=== PATIENT | female | born 2000 | race Caucasian/White ===

== ENCOUNTER 2022-07-21 18:07 | Emergency (ER) | payer MEDICAID, SELFPAY ==
--- NOTE | 2022-07-21 18:30 | CTR_ITS ---
PROCEDURE INFORMATION: Exam: CT Abdomen And Pelvis Without Contrast Exam date and time: 07/21/2022 7:55 PM Age: 21 years old Clinical indication: Abdominal pain; Flank; Right; Additional info: Question of kidney stone TECHNIQUE: Imaging protocol: Computed tomography of the abdomen and pelvis without contrast. Radiation optimization: All CT scans at this facility use at least one of these dose optimization techniques: automated exposure control; mA and/or kV adjustment per patient size (includes targeted exams where dose is matched to clinical indication); or iterative reconstruction. COMPARISON: No relevant prior studies available. RADIATION DOSE METRICS: Total DLP (mGy-cm): 350.58 FINDINGS: Liver: Normal. No mass. Gallbladder and bile ducts: Normal. No calcified stones. No ductal dilation. Pancreas: Normal. No ductal dilation. Spleen: One or more accessory splenules. Adrenal glands: Normal. No mass. Kidneys and ureters: Normal. No hydronephrosis. Stomach and bowel: Unremarkable. No obstruction. No mucosal thickening. Appendix: Normal appendix. Intraperitoneal space: Unremarkable. No free air. No significant fluid collection. Vasculature: Unremarkable. No abdominal aortic aneurysm. Lymph nodes: Unremarkable. No enlarged lymph nodes. Urinary bladder: Unremarkable as visualized. Reproductive: 3.4 cm right ovarian cyst just inferior to the appendix and anterior to the right psoas muscle. Bones/joints: Unremarkable. No acute fracture. Soft tissues: Unremarkable. CT/CT abdomen pelvis con [id number] IMPRESSION: 1. 3.4 cm right ovarian cyst just inferior to the appendix and anterior to the right psoas muscle. 2. Normal appendix.
[2022-07-21 19:47] LABS: Basophils % 0.4 %; Eosinophils # 0.1 10^3/uL (0.0-0.8); Eosinophils % 0.9 %; Hematocrit 33.4 % (37.0-47.0); Lymphocytes # 1.9 10^3/uL (0.8-4.8); Mean Corpuscular HGB Conc 29.9 g/dL (30.0-36.0); Mean Corpuscular Hemoglobin 21.7 pg (28.0-34.0); Mean Corpuscular Volume 72.5 fl (81-99); Mean Platelet Volume 9.7 fL (7.4-10.4); Monocytes # 0.6 10^3/uL (0.2-0.9); Monocytes % 8.4 %; Neutrophils # 4.37 10^3/uL (1.8-7.7); Nucleated Red Blood Cells % 0 %; Platelet Count 480 10^3/cmm (130-400); Red Blood Count 4.61 10^6/uL (4.1-5.3); Red Cell Distribution Width 16.6 % (12.1-15.1); White Blood Count 6.9 10^3/uL (4.0-10.0)
[2022-07-21 19:51] LABS: HCG Qualitative Urine. Negative (Negative)
[2022-07-21 20:00] VITALS: BP 136/92; PULSE 60; RESP 16; O2SAT 100
[2022-07-21 20:02] LABS: Add Urine Microscopic? YES; Bilirubin Urine Neg (Negative); Blood Urine 2+ (Negative); Glucose Urine UA Norm (Normal); Ketones Urine Negative (Negative); Leukocyte Esterase Urine Trace (Negative); Nitrate Urine Negative (Negative); Protein Urine Neg (Negative); Urine Appearance SL Hazy (CLEAR); Urine Color Yellow (Yellow); Urobilinogen Urine Neg (Negative); pH Urine 6 (5-7)
[2022-07-21 20:03] LABS: Add Urine Culture? No; Bacteria Urine TRACE /hpf; Mucus Urine TRACE /hpf; WBC Urine 0-4 /hpf (0-5)
[2022-07-21 20:16] VITALS: RESP 18
[2022-07-21] MEDS: morphine 4 mg/mL SDV 1 mL IVP ×2 (20:16→22:25)
[2022-07-21] MEDS: ondansetron 2 mg/ML SDV 2 mL 4 MG IVP ×2 (20:16→22:25)
[2022-07-21] MEDS: sodium chloride 0.9% 1,000 ML 999 ML IV (20:17)
[2022-07-21 20:23] LABS: Alanine Aminotransferase 14 U/L (0-33); Albumin Level 4.3 g/dL (3.5-5.2); Alkaline Phosphatase 58 U/L (35-105); Anion Gap 15.1 (5-19); Aspartate Amino Transferase 31 U/L (0-32); Blood Urea Nitrogen 9 mg/dL (6-20); Calcium 9.1 mg/dL (8.5-10.5); Carbon Dioxide 25 mmol/L (22-29); Chloride 98 mmol/L (98-107); Globulin 3.8 g/dL (1.3-4.6); Glomerular Filtration Rate 105.6 mL/min (90-130); Glucose 100 mg/dL (65-115); Osmolality Calculated 277 mOsm/kg (285-295); Potassium 4.1 mmol/L (3.5-5.1); Sodium 134 mmol/L (136-145); Total Bilirubin 0.7 mg/dL (0.15-1.2); Total Protein 8.1 g/dL (6.6-8.7)
--- NOTE | 2022-07-21 20:45 | W.ED.FEMALGU ---
HPI - Female Genitourinary General: Chief complaint: Urogenital-Female Stated complaint: right side pain, blood in urine Time Seen by Provider: 07/21/22 18:33 History of Present Illness: Healthy 21-year-old female here with right abdominal and right flank pain. She was seen at urgent care, told to come here due to blood in her urine and flank pain. She denies fever. She vomited 1 time. She notes that it is hard to straighten up due to the belly pain. MD elicited complaint: pelvic pain and flank pain Onset (ago): hour(s) Quality of pain: stabbing and aching Consistency: constant Vaginal discharge: none Vaginal bleeding: none Associated symptoms: Reports abdominal pain and nausea; Deny fevers/chills, headache(s), vaginal bleeding or vaginal discharge Review of Systems Const: Denies: fever(s), chills or body aches Eyes: Denies: change in vision Card: Denies: chest pain or palpitations Resp: Denies: dyspnea, productive cough, non-productive cough or wheezing GI: Reports: abdominal pain, nausea and vomiting; Denies: diarrhea : Denies: vaginal bleeding or vaginal discharge Skin/Breast: Denies: rash Neuro: Denies: headache(s) Physical Exam Const: COMMON NORMALS: no acute distress GENERAL APPEARANCE: cooperative; not ill appearing and not frail appearing HENMT: COMMON NORMALS: normocephalic, atraumatic and Normal external nose present HEAD & SCALP: normocephalic and atraumatic FACE & SINUS: normal facial exam and face symmetric NOSE: Normal external nose present Eye: COMMON NORMALS: Equal, round and reactive pupils present and EOMs intact bilaterally PUPIL: Yes Equal, round and reactive pupils present Neck/C-Spine: GENERAL: Yes trachea midline Chest: CHEST: Yes Symmetrical chest wall rise Resp: COMMON NORMALS: normal respiratory effort, No retractions, No use of accessory muscles and clear to auscultation bilaterally AUSCULTATION: clear to auscultation bilaterally Cardio: COMMON NORMALS: regular rate and regular rhythm RATE: regular rate RHYTHM: regular rhythm GI: COMMON NORMALS: Normal to inspection, nondistended, normoactive bowel sounds present PALPATION: Yes Tenderness to palpation present (GI) Details: RLQ : BLADDER/KIDNEY EXAM: Yes CVA tenderness on the right SPECULUM EXAM - VAGINA: No vaginal bleeding OB/EXTERNAL & SPECULUM: No vaginal bleeding Back/Pelvis: GENERAL BACK: Yes CVA tenderness Extremity: COMMON NORMALS: no pedal edema Neuro: MARIELLA COMA SCALE: document GCS findings Mariella coma scale eye opening: Spontaneous Mariella coma scale verbal response: Orientated Mariella coma scale motor response: Obey commands Mariella coma scale total score: 15 SENSORY EXAM: Yes extremities (intact) Psych: COMMON NORMALS: speech normal SPEECH: Yes normal speech Skin: COMMON NORMALS: no rashes or lesions noted GENERAL SKIN EXAM: no rashes or lesions noted Course Vital Signs: Vital signs: Vital Signs Pulse Rate 60 07/21/22 20:00 Respiratory Rate 18 07/21/22 20:16 Blood Pressure 136/92 07/21/22 20:00 Pulse Oximetry 100 07/21/22 20:00 MDM - Female Medical Decision Making Hemoglobin is 10. White blood cell count 6.9. BMP is not remarkable. Liver enzymes are nonremarkable. Urinalysis shows 5-10 red cells. Is otherwise unremarkable. CT of the abdomen pelvis shows an ovarian cyst lying into the appendix. There is no hydronephrosis. The appendix is normal. She will be allowed discharge. Lab Data : 07/21/22 19:30 07/21/22 19:30 Radiology Impressions Abdomen/Pelvis CT 07/21/22 18:30 IMPRESSION: 1. 3.4 cm right ovarian cyst just inferior to the appendix and anterior to the right psoas muscle. 2. Normal appendix. Laboratory Results WBC 6.9 10^3/uL (4.0-10.0) 07/21/22 19: RBC 4.61 10^6/uL (4.1-5.3) 07/21/22 19:30 Hgb 10.0 g/dL (11.5-15.3) L 07/21/22 19:30 Hct 33.4 % (37.0-47.0) L 07/21/22 19:30 MCV 72.5 fl (81-99) L 07/21/22 19:30 MCH 21.7 pg (28.0-34.0) L 07/21/22 19:30 MCHC 29.9 g/dL (30.0-36.0) L 07/21/22 19:30 RDW 16.6 % (12.1-15.1) H 07/21/22 19: Plt Count 480 10^3/cmm (130-400) H 07/21/22: MPV 9.7 fL (7.4-10.4) 07/21/22 19: Neut % (Auto) 63.0 % 07/21/22: Lymph % (Auto) 27.0 % 07/21/22: [place] % (Auto) 8.4 % 07/21/22: Eos % (Auto) 0.9 % 07/21/22 19: Baso % (Auto) 0.4 % 07/21/22: Neut # (Auto) 4.37 10^3/uL (1.8-7.7) 07/21/22: Lymph # (Auto) 1.9 10^3/uL (0.8-4.8) 07/21/22: Miner # (Auto) 0.6 10^3/uL (0.2-0.9) 07/21/22: Eos # (Auto) 0.1 10^3/uL (0.0-0.8) 07/21/22 19: Baso # (Auto) 0.0 10^3/uL (0.0-0.1) 07/21/22: Nucleated RBC % (auto) 0 % 07/21/22: Nucleated RBCs # 0.0 /100WBC 07/21/22 19: Sodium 134 mmol/L (136-145) L 07/21/22: Potassium 4.1 mmol/L (3.5-5.1) 07/21/22: Chloride 98 mmol/L (98-107) 07/21/22: Carbon Dioxide 25 mmol/L (22-29) 07/21/22: Anion Gap 15.1 (5-19) 07/21/22 19: BUN 9 mg/dL (6-20) 07/21/22 19: Creatinine 0.7 mg/dL (0.5-0.9) 07/21/22 19: GFR Calculation 105.6 mL/min (90-130) 07/21/22: Glucose 100 mg/dL (65-115) 07/21/22: Calculated Osmolality 277 mOsm/kg (285-295) L 07/21/22 19: Calcium 9.1 mg/dL (8.5-10.5) 07/21/22 19: Total Bilirubin 0.7 mg/dL (0.15-1.2) 07/21/22 19: AST 31 U/L (0-32) 07/21/22 19: ALT 14 U/L (0-33) 07/21/22 19: Alkaline Phosphatase 58 U/L (35-105) 07/21/22 19: Total Protein 8.1 g/dL (6.6-8.7) 07/21/22 19: Albumin 4.3 g/dL (3.5-5.2) 07/21/22 19: Globulin 3.8 g/dL (1.3-4.6) 07/21/22 19:30 HCG, Qual Negative (Negative) 07/21/22 19: Urine Color Yellow (Yellow) 07/21/22 19: Urine Appearance Sl hazy (CLEAR) A 07/21/22 19: Urine pH 6 (5-7) 07/21/22 19:30 Ur Specific [place] 1.020 (1.005-1.030) 07/21/22: Urine Protein Neg (Negative) 07/21/22 19: Urine Glucose (UA) Norm (Normal) 07/21/22 19:30 Urine Ketones Negative (Negative) 07/21/22 19: Urine Blood 2+ (Negative) H 07/21/22: Urine Nitrate Negative (Negative) 07/21/22 19: Urine Bilirubin Neg (Negative) 07/21/22 19: Urine Urobilinogen Neg mg/dL (Negative) 07/21/22 19:30 Ur Leukocyte Esterase Trace (Negative) H 07/21/22 19:30 Urine RBC 5-10 /hpf (0-2) H 07/21/22 19:30 Urine WBC 0-4 /hpf (0-5) H 07/21/22 19:30 Ur Squamous Epith Cells 5-10 /hpf (0-5) H 07/21/22 19:30 Ur Transition Epith Cell 5-10 /hpf 07/21/22 19:30 Amorphous Sediment Not Reportable 07/21/22 19:30 Urine Bacteria Trace /hpf (NONE) 07/21/22 19:30 Urine Mucus Trace /hpf 07/21/22 19:30 Discharge Plan Discharge Patient Disposition: Home Clinical Impression: Ovarian cyst, Acute right lower quadrant pain Condition: Stable Prescriptions: New ketorolac 10 mg tablet 10 mg PO TID PRN (Reason: pain) Qty: 10 0RF ondansetron 4 mg film 4 mg PO DAILY PRN (Reason: nausea and vomiting) Qty: 10 0RF Discharge Orders: Discharge ED (Routine); Ordered 07/21/22 Ordered By: Kirk Nguyen Patient Instructions: Abdominal Pain (ED), Opioid Safety, Pain Management Activity Restrictions/Additional Instructions: Return for fever greater than 100, vomiting liquids or medications despite treatment, worsening pain despite treatment, vaginal bleeding or discharge, any other concerning symptoms Coding Level of Care Code [facility] Representative for [facility] Fwd Exam Comprehensive
[2022-07-21] MEDS: ketorolac 30 mg/mL INJ 15 MG IVP (21:12)
[2022-07-21 22:23] VITALS: BP 117/68; PULSE 81; RESP 16; TEMP 36.6; O2SAT 100
[2022-07-21 22:25] VITALS: RESP 16; O2SAT 98
== END 2022-07-21 22:46 | disposition home or self-care (01) ==
PROVIDERS: Emergency Medicine; Emergency Provider Emergency Medicine
DX: N83.201 Unspecified ovarian cyst, right side (principal)
CPT/HCPCS: 74176; 80053; 81000; 81001; 81025; 85025; 96361; 96374; 96375; 96376; 99285; J1885; J2270; J2405; J7030

== ENCOUNTER 2023-02-06 06:24 | Outpatient (CLI) | payer MEDICAID, SELFPAY ==
--- NOTE | 2023-02-06 07:15 | US_ITS ---
WS: [id number] US pelv w/transvag [id number] HISTORY: N83.202 - Unspecified ovarian cyst, left side COMPARISON: None available. Uterus: 7.3 cm x 5.2 cm x 4.1 cm. Normal size anteverted uterus. No fibroid or mass. Endometrium: 2.4 cm. Abnormal endometrium. Heterogeneous endometrium with marked enlargement. There i s very mild increased vascularity. Right ovary: Not visualized. No adnexal mass. Left ovary: 2.3 cm x 1.9 cm x 1.4 cm. Normal size and vascularity, no cystic or solid masses. No free fluid in the cul-de-sac. US/US pelv w/transvag [id number] IMPRESSION: 1. Markedly enlarged and mildly heterogeneous endometrium. This may be related to recent hormone injection. Suggest short-term transvaginal pelvic ultrasound follow-up after 2-3 menstrual cycles to ensure the endometrium returns to norm al. 2. RIGHT ovary is not visualized. 3. No adnexal or ovarian cysts.
== END 2023-02-06 06:25 | disposition home or self-care (01) ==
LOC: RAD 06:26
PROVIDERS: PCP Nurse Practitioner Family; Visit Provider Nurse Practitioner Family
DX: N83.202 Unspecified ovarian cyst, left side (principal); D64.9 Anemia, unspecified; R10.2 Pelvic and perineal pain
CPT/HCPCS: 76830; 76856; 80053; 82728; 83550; 85025

== ENCOUNTER → 2023-03-04 14:57 | Outpatient (BNVA) | payer MEDICAID, SELFPAY | PROVIDERS: PCP Nurse Practitioner Family; Visit Provider Nurse Practitioner Family | DX: R10.2 Pelvic and perineal pain (principal); R93.89 Abnormal findings on diagnostic imaging of other specified body structures; D64.9 Anemia, unspecified; D75.839 Thrombocytosis, unspecified | CPT/HCPCS: 85025 ==

== ENCOUNTER → 2023-03-13 09:57 | Outpatient (BNVA) | payer MEDICAID, SELFPAY | PROVIDERS: PCP Nurse Practitioner Family; Visit Provider Nurse Practitioner Family | DX: D64.9 Anemia, unspecified (principal); D75.839 Thrombocytosis, unspecified | CPT/HCPCS: 83540; 85025 ==

== ENCOUNTER → 2023-06-09 14:21 | Outpatient (BNVA) | payer OTHER, SELFPAY | PROVIDERS: PCP Nurse Practitioner Family; Visit Provider Nurse Practitioner Family | DX: Z20.822 Contact with and (suspected) exposure to COVID-19 (principal); D64.9 Anemia, unspecified | CPT/HCPCS: 80053; 87486; 87581; 87633 ==

== ENCOUNTER 2023-07-16 16:34 | Outpatient (CLI) | payer OTHER, SELFPAY ==
--- NOTE | 2023-07-16 16:43 | XRR_ITS ---
PROCEDURE INFORMATION: Exam: XR Cervical Spine Exam date and time: 07/16/2023 4:47 PM Age: 22 years old Clinical indication: Cervicalgia; Patient HX: Right arm going numb, neck pain for about 1 month; Additional info: M54.2 - cervicalgia TECHNIQUE: Imaging protocol: Radiologic exam of the cervical spine. Views: 2 or 3 views. COMPARISON: CR XR shoulder RT min 2V* [id number] 11/13/2017 9:12 AM FINDINGS: Bones/joints: Vertebral body heights are preserved. No compression fractures are noted. Vertebral alignment is physiologic. Intervertebral disc heights are preserved. No significant intervertebral disc narrowing. The facet joints are intact. Soft tissues: The soft tissues are unremarkable. XR/XR cervical spine 3V* [id number] IMPRESSION: Unremarkable cervical spine radiographic series.
== END 2023-07-16 16:35 | disposition home or self-care (01) ==
PROVIDERS: PCP Nurse Practitioner Family; Visit Provider Nurse Practitioner Family
DX: M54.2 Cervicalgia (principal)
CPT/HCPCS: 72040

== ENCOUNTER → 2023-09-16 11:58 | Outpatient (BNVA) | payer OTHER, SELFPAY | PROVIDERS: PCP Nurse Practitioner Family; Visit Provider Nurse Practitioner | DX: J06.9 Acute upper respiratory infection, unspecified (principal); A08.4 Viral intestinal infection, unspecified | CPT/HCPCS: 87426 ==